=== PATIENT | male | born 1990 | race Two or more races ===

== ENCOUNTER 2019-10-04 15:01 | Emergency (ER) | payer OTHER ==
[2019-10-04 15:16] VITALS: BP 116/75; PULSE 64; TEMP 98; BMI 23.7
--- NOTE | 2019-10-04 16:59 | PDOC ---
History of Present Illness - General History Source: Patient Exam Limitations: No Limitations - History of Present Illness Initial Comments: 10/04/19 16:46 Patient is a 29 year old male with no pmhx c/o pain to the left jaw and occiput has been intermittent x 2 week but this morning woke up with the pain. States has started with an tooth abscess for which he should have a root canal but could due to ins. problems. States since has been having intermittent pain now 05/16. Took Motrin last dose 2 pm, with minimal relief. Symptoms are assoc/ w nausea, no vomiting. He did eat prior to taking the meds. denies fever, chills, neck stiffness, dizziness, CP. Patient reports that he has an appointment with the dentist in the morning at 10:00 AM PMHX: neg PSOCHX: occ etoh, (+) MJ, Neg cig ALL: NKDA Review of Systems: GENERAL/CONSTITUTIONAL: No fever or chills. No weakness. No weight change. HEAD, EYES, EARS, NOSE AND THROAT: No change in vision. No ear pain or discharge. No sore throat. CARDIOVASCULAR: No chest pain or shortness of breath. RESPIRATORY: No cough, wheezing, or hemoptysis. GASTROINTESTINAL: (+) nausea, (-) vomiting, diarrhea or constipation. No rectal bleeding. GENITOURINARY: No dysuria, frequency, or change in urination. MUSCULOSKELETAL: No joint or muscle swelling or pain. No neck or back pain. SKIN AND BREASTS: No rash or easy bruising. NEUROLOGIC: (+) headache, (-) vertigo, loss of consciousness, or loss of sensation. PSYCHIATRIC: No depression or anxiety. ENDOCRINE: No increased thirst. No abnormal weight change. HEMATOLOGIC/LYMPHATIC: No anemia, easy bleeding, or history of blood clots. ALLERGIC/IMMUNOLOGIC: No hives or skin allergy. No latex allergy. GENERAL: [The patient is awake, alert, and fully oriented, in no acute distress. ] HEAD: [Normal with no signs of trauma.] EYES: [Pupils equal, round and reactive to light, extraocular movements intact, sclera anicteric, conjunctiva clear.] ENT: [Ears normal, nares patent, oropharynx clear without exudates. Moist mucous membranes, mild tenderness at space of tooth #19, #18, #19 intact dentition intact, no swelling to the jaw, no.] NECK: [Normal range of motion, supple without cervical, submental or submandibular lymphadenopathy, JVD, or masses.] LUNGS: [Breath sounds equal, clear to auscultation bilaterally. No wheezes, and no crackles.] HEART: [Regular rate and rhythm, normal S1 and S2 without murmur, rub.] ABDOMEN: [Soft, nontender, normoactive bowel sounds. No guarding, no rebound. No masses.] EXTREMITIES: [Normal range of motion, no edema. No clubbing or cyanosis. No cords, erythema, or tenderness.] NEUROLOGICAL: [Cranial nerves II through XII grossly intact. Normal speech, normal gait.] PSYCH: [Normal mood, normal affect.] SKIN: [Warm, Dry, normal turgor, no rashes or lesions noted.] <Carmen Hernandez - Last Filed: 10/04/19 20:01> <Renetta Obrien - Last Filed: 10/05/19 17:28> - General Chief Complaint: Headache Stated Complaint: BOIL IN THE MOUTH/HEADACHE Past History - Past Medical History COPD: No - Psycho Social/Smoking Cessation Hx Smoking History: Current every day smoker Information on smoking cessation initiated: No Hx Alcohol Use: No Drug/Substance Use Hx: No <Carmen Hernandez - Last Filed: 10/04/19 20:01> <Renetta Obrien - Last Filed: 10/05/19 17:28> - Past Medical History Allergies/Adverse Reactions: Allergies Allergy/AdvReac Type Severity Reaction Status Date / Time No Known Allergies Allergy Verified 10/04/19 15:16 Home Medications: Ambulatory Orders Amoxicillin - [Amoxicillin 500mg Capsule -] 500 mg PO BID #14 capsule 11/29/17 Ibuprofen 800 mg PO TID #30 tablet 11/29/17 *Physical Exam - Vital Signs Last Vital Signs Temp Pulse Resp BP Pulse Ox 98 F 64 18 116/75 97 10/04/19 15:13 10/04/19 15:13 10/04/19 15:13 10/04/19 15:13 10/04/19 15:13 <Carmen Hernandez - Last Filed: 10/04/19 20:01> - Vital Signs Last Vital Signs Temp Pulse Resp BP Pulse Ox 98 F 64 18 116/75 97 10/04/19 15:13 10/04/19 15:13 10/04/19 15:13 10/04/19 15:13 10/04/19 15:13 <Renetta Obrien - Last Filed: 10/05/19 17:28> Medical Decision Making - Medical Decision Making 10/04/19 16:46 Patient is a 29 year old male with no pmhx c/o pain to the left jaw and occiput has been intermittent x 2 week but this morning woke up with the pain. States has started with an tooth abscess for which he should have a root canal but could due to ins. problems. States since has been having intermittent pain now 05/16. Took Motrin last dose 2 pm, with minimal relief. Symptoms are assoc/ w nausea, no vomiting. He did eat prior to taking the meds. denies fever, chills, neck stiffness, dizziness, CP, Patient with headache and jaw pain. Discussed with the patient treatment plan for Tylenol and Reglan. He is requesting to have antibiotics. Patient with no signs of an infection or abscess to the left jaw. It was discussed with the patient that I would not put him on antibiotics since he has an appointment with the dentist in the morning. His dentist could further evaluate. Nurse brought patient medications for his headache but was not found in the area. It was presumed patient eloped. <Carmen Hernandez - Last Filed: 10/04/19 20:01> - Medical Decision Making The patient was seen and evaluated in conjunction with midlevel provider under my direct supervision, ancillary studies were reviewed. I agree with the plan as outlined SENTHIL Vann. HPI, workup/dispo as outlined. VS reviewed, wnl. pt eloped from department prior to full evalation/reassessment. 10/05/19 17:28 <Renetta Obrien - Last Filed: 10/05/19 17:28> Discharge - Discharge Information Problems reviewed: Yes <Carmen Hernandez - Last Filed: 10/04/19 20:01> <Renetta Obrien - Last Filed: 10/05/19 17:28> - Discharge Information Clinical Impression/Diagnosis: Eloped from emergency department, Jaw pain Headache Qualifiers: Headache type: unspecified Headache chronicity pattern: unspecified pattern Intractability: not intractable Qualified Code(s): R51 - Headache Condition: Unchanged/Unknown Disposition: ELOPED
[2019-10-04] MEDS ORDERED: METOCLOPRAMIDE HCL 10 MG TABLET (FP) PO ONE ×3 (17:08→17:31)
[2019-10-04] MEDS ORDERED: ACETAMINOPHEN 500 MG TABLET (FP) PO ONE (17:08)
[2019-10-04] MEDS ORDERED: ACETAMINOPHEN 325 MG TABLET (FP) ONE ×2 (17:17→17:30)
== END 2019-10-04 17:38 | disposition left against medical advice (07) ==
LOC: JER 15:01
DX: R51 Headache (principal); R68.84 Jaw pain
CPT/HCPCS: 99281-25

== ENCOUNTER 2021-04-01 23:00 | Emergency (ER) | payer OTHER ==
[2021-04-01 23:11] VITALS: TEMP 98.2; BMI 25.5
[2021-04-02 01:06] LABS: BASO % 0.9 % (0-2.0); EOS % 2.6 % (0-4.5); HEMATOCRIT 38.8 % (35.4-49); HEMOGLOBIN 13.3 GM/dL (11.7-16.9); LYMPH % 42.8 % (8-40); MCH 31.4 pg (25.7-33.7); MCHC 34.2 g/dl (32.0-35.9); MEAN CELL VOLUME 91.6 fl (80-96); MEAN PLT VOLUME 6.7 fl (7.5-11.1); MONO % 11.9 % (3.8-10.2); NEUT % 41.8 % (42.8-82.8); PLATELET COUNT 274 10^3/uL (134-434); RBC 4.23 M/mm3 (4.00-5.60); WHITE BLOOD COUNT 7.3 K/mm3 (4.0-10.0)
[2021-04-02 01:27] LABS: BLOOD UREA NITROGEN 17.3 mg/dL (7-18)
[2021-04-02 01:30] LABS: CREATININE 1.3 mg/dL (0.55-1.3); PHOSPHOROUS 3.4 mg/dL (2.5-4.9)
[2021-04-02 01:31] LABS: BILIRUBIN,TOTAL 0.3 mg/dL (0.2-1); TOT PROT 7.1 g/dl (6.4-8.2)
[2021-04-02 03:47] VITALS: BP 118/72; PULSE 77
== END 2021-04-02 03:47 | disposition home or self-care (01) ==
LOC: JER 23:00
DX: H61.23 Impacted cerumen, bilateral (principal)
CPT/HCPCS: 36415; 80053; 83735; 84100; 85025; 93005; 93010; 99283-25

== ENCOUNTER 2023-02-22 05:25 | Emergency (ER) | payer OTHER ==
[2023-02-22 05:32] VITALS: BP 134/84; PULSE 72; RESP 18; TEMP 98.1; BMI 24.3
[2023-02-22] MEDS ORDERED: FAMOTIDINE 20 MG TABLET PO ONE (05:44)
[2023-02-22] MEDS ORDERED: ONDANSETRON *ODT* 4 MG TABLET SL ONE (05:45)
[2023-02-22] MEDS ORDERED: MAG HYDROX/AL HYDROX/SIMETH 30 ML UNIT-DOSE CUP PO ONE (05:45)
[2023-02-22] MEDS ORDERED: FAMOTIDINE 20 MG TABLET ONE (06:11)
[2023-02-22] MEDS ORDERED: ONDANSETRON *ODT* 4 MG TABLET ONE (06:12)
[2023-02-22] MEDS ORDERED: MAG HYDROX/AL HYDROX/SIMETH 30 ML UNIT-DOSE CUP ONE (06:12)
== END 2023-02-22 06:57 | disposition home or self-care (01) ==
LOC: JER 05:25
DX: R10.13 Epigastric pain (principal); R11.10 Vomiting, unspecified; K21.9 Gastro-esophageal reflux disease without esophagitis
CPT/HCPCS: 93005; 93010; 99283-25; Q0162

== ENCOUNTER 2023-04-09 15:26 | Emergency (ER) | payer OTHER ==
[2023-04-09 15:50] VITALS: BP 126/72; PULSE 55; RESP 18; TEMP 98.6; BMI 26.2
[2023-04-09] MEDS ORDERED: SODIUM CHLORIDE 0.9% 500 ML INFUS.BAG IV ONE (16:03)
[2023-04-09] MEDS ORDERED: KETOROLAC TROMETHAMINE 15 MG/ML VIAL IVPUSH ONE (16:03)
[2023-04-09] MEDS ORDERED: METOCLOPRAMIDE HCL INJECTION 10 MG/2 ML VIAL IVPUSH ONE (16:03)
[2023-04-09] MEDS ORDERED: METOCLOPRAMIDE HCL INJECTION 10 MG/2 ML VIAL ONE (16:19)
[2023-04-09] MEDS ORDERED: KETOROLAC TROMETHAMINE 15 MG/ML VIAL ONE (16:19)
[2023-04-09 16:32] LABS: BASO % 0.4 % (0-2.0); EOS % 0.4 % (0-4.5); HEMATOCRIT 45.8 % (35.4-49); HEMOGLOBIN 14.7 GM/dL (11.7-16.9); LYMPH % 18.1 % (8-40); MCH 29.7 pg (25.7-33.7); MCHC 32.2 g/dl (32.0-35.9); MEAN CELL VOLUME 92.3 fl (80-96); MEAN PLT VOLUME 7.3 fl (7.5-11.1); MONO % 9.6 % (3.8-10.2); NEUT % 71.5 % (42.8-82.8); PLATELET COUNT 389 10^3/uL (134-434); RBC 4.96 M/mm3 (4.00-5.60); RDW 13.6 % (11.9-15.9)
[2023-04-09 16:49] LABS: POTASSIUM 3.9 mmol/L (3.5-5.1)
[2023-04-09 16:51] LABS: ALBUMIN 4.6 g/dl (3.4-5.0)
[2023-04-09 16:55] LABS: CREATININE 1.1 mg/dL (0.55-1.3)
[2023-04-09 16:56] LABS: BILIRUBIN,TOTAL 0.7 mg/dL (0.2-1); TOT PROT 8.2 g/dl (6.4-8.2)
== END 2023-04-09 18:42 | disposition home or self-care (01) ==
LOC: JER 15:26
PROC: 3E033NZ Introduction of Analgesics, Hypnotics, Sedatives into Peripheral Vein, Percutaneous Approach (ICD-10-PCS; principal; 2023-04-09)
PROC: 3E033GC Introduction of Other Therapeutic Substance into Peripheral Vein, Percutaneous Approach (ICD-10-PCS; 2023-04-09)
DX: R51.9 Headache, unspecified (principal)
CPT/HCPCS: 36415; 70450-TC; 80053; 83735; 85025; 99284-25